=== PATIENT | male | born 1950 | race African-American/Black ===

== ENCOUNTER 2016-09-29 12:07 | Outpatient (CLI) | payer MEDICARE ==
--- NOTE | 2016-09-29 16:29 | ULT ---
LEFT LOWER EXTREMITY VENOUS ULTRASOUND: Date: 09/29/16 Color duplex Doppler ultrasonography of the deep veins of the left lower extremity was performed by [facility]. Documentary images and worksheets were reviewed. FINDINGS: No echogenic clot was seen. All deep veins were freely compressible from groin to ankle. There were normal Doppler responses to augmentation maneuvers. IMPRESSION: No evidence for deep venous thrombosis. POS: HOME
== END 2016-09-29 12:08 | disposition home or self-care (01) ==
LOC: BURULT 12:07
PROVIDERS: ATTEND Neurological Surgery
DX: M79.606 Pain in leg, unspecified (principal)

== ENCOUNTER 2024-12-10 08:28 | Emergency (ER) | payer MEDICARE | END 2024-12-10 15:43 | disposition short-term general hospital (02) | LOC: BURERS 08:28 → SUATTDRO 08:28 → BURERS 15:43 | PROVIDERS: ADMIT Family Medicine; ATTEND Family Medicine | DX: J90 Pleural effusion, not elsewhere classified (principal); I13.0 Hypertensive heart and chronic kidney disease with heart failure and stage 1 through stage 4 chronic kidney disease, or unspecified chronic kidney disease; N18.9 Chronic kidney disease, unspecified; I50.9 Heart failure, unspecified; F17.210 Nicotine dependence, cigarettes, uncomplicated; Z79.899 Other long term (current) drug therapy | CPT/HCPCS: 36415; 71045; 83880; 93005 ==

== ENCOUNTER 2025-01-21 10:46 | Outpatient (CLI) | payer MEDICARE ==
[2025-01-21 11:14] LABS: #Basophils 0.1 thou/uL (0.0-0.2); #Eosinophils 0.3 thou/uL (0.0-0.7); #Lymphocytes 1.1 thou/uL (1.20-3.40); #Monocytes 0.6 thou/uL (0.11-0.59); #Neutrophils 6.6 thou/uL (1.40-6.50); %Basophils 0.7 % (0.0-1.0); %Eosinophils 3.5 % (0.0-10.0); %Lymphocytes 12.9 % (21.0-51.0); %Monocytes 7.0 % (0.0-10.0); %Neutrophils 76.0 % (42.0-75.0); Hematocrit 32.0 % (42.0-52.0); Hemoglobin 10.2 g/dL (14.0-18.0); Mean Corpuscular Hemoglobin 32.0 pg (27.0-31.0); Mean Corpuscular Volume 101.0 fl (78.0-98.0); Platelet Count 212 10x3/uL (130-400); Red Blood Cell (RBC) Count 3.18 mill/uL (4.70-6.10); White Blood Cell (WBC) Count 8.7 10x3/uL (4.8-10.8)
[2025-01-21 11:24] LABS: Anion Gap 15 mmol/L (10-20); BUN (Urea Nitrogen) 13 mg/dL (8.4-25.7); Calc. Creatinine Clearance 0 mL/min (70-130); Calcium 8.5 mg/dL (7.8-10.44); Carbon Dioxide 20 mmol/L (23-31); Chloride 107 mmol/L (98-107); Glucose 115 mg/dL (83-110); Potassium 3.2 mmol/L (3.5-5.1); Sodium 139 mmol/L (136-145)
== END 2025-01-21 10:47 | disposition home or self-care (01) ==
LOC: BURLAB 10:46
PROVIDERS: ATTEND Internal Medicine Cardiovascular Disease
DX: E78.2 Mixed hyperlipidemia (principal)
CPT/HCPCS: 36415; 80048; 85025